=== PATIENT | male | born 1970 | race Caucasian/White ===

== ENCOUNTER 2017-09-07 00:05 | Emergency (ER) | payer SELFPAY ==
[~2017-09-07] VITALS: Ht 188 cm; Wt 90.7 kg
[2017-09-07] MEDS ORDERED: ALPR0.5T8 PO (00:23)
--- NOTE | 2017-09-07 00:56 | NUR ---
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 EXPLAINED PT'S CONCERNS TO [facility]. CARLOS STATES THAT HE'LL BE HERE 3-4 HRS.
[2017-09-07 01:16] LABS: *BLOOD, URINE NEGATIVE (NEGATIVE); *CLARITY,URINE CLEAR (CLEAR); *COLOR,URINE YELLOW (YELLOW); *KETONES,URINE 1+ (NEGATIVE); *UROBILINOGEN,URINE 0.2 E.U./dl (NORMAL); LEUKOCYTE ESTERASE ,URINE NEGATIVE (NEGATIVE); NITRITE, URINE NEGATIVE (NEGATIVE); PH,URINE 5.5 (5.0-8.0); UGLUCOSE NEGATIVE (NEGATIVE)
[2017-09-07 01:18] LABS: *BILIRUBIN,URIN 1+ (NEGATIVE)
--- NOTE | 2017-09-07 01:27 | NUR ---
Patient eloped from facility. ER physician notified.Patient did not have peripheral IV placed during this visit. patient took all belongings with him at time of elopment. Patient refused blood draw, stated he would contact a friend to come see him in ER prior to blood work. At this time patient eloped from ER without further lab work being complete. ER MD is aware of patient elopement. patient was in stable condition at time of elopement. No cardiopulmonary distress noted. Eloped with stable gait. no medication was given during this visit.
[2017-09-07 01:28] LABS: *PROTEIN,URINE 1+ (NEGATIVE)
[2017-09-07 01:51] LABS: BACTERIA,URINE FEW /HPF (NONE SEEN); RBC,URINE 0-3 /HPF (0-3); WBC,URINE 0-3 /HPF (0-3)
[2017-09-07 01:52] LABS: MUCUS,URINE MANY /LPF (0-FEW)
[2017-09-07 02:17] LABS: *AMPHETAMINE, URINE NEGATIVE (NEGATIVE); *BARBITURATE, URINE NEGATIVE (NEGATIVE); *CANNABINOID, URINE POSITIVE (NEGATIVE); *COCCAINE, URINE NEGATIVE (NEGATIVE); *OPIATE, URINE NEGATIVE (NEGATIVE); *PHENCYCLIDINE SCREEN,URINE NEGATIVE (NEGATIVE)
== END 2017-09-07 01:31 | disposition left against medical advice (07) ==
LOC: ER 00:12
DX: F41.9 Anxiety disorder, unspecified (principal); R00.2 Palpitations; Z79.899 Other long term (current) drug therapy; Z59.0 Homelessness; Z53.29 Procedure and treatment not carried out because of patient's decision for other reasons
CPT/HCPCS: 80307; A4663